=== PATIENT | male | born 1935 | race Caucasian/White ===

== ENCOUNTER 2017-09-18 06:43 | Inpatient (IN) | payer OTHER, MEDICARE ==
[~2017-09-18] VITALS: Ht 177.8 cm; Wt 114.7 kg
[~2017-09-18 06:43] MED LIST: APIX5TAB PO; ATEN50TA PO; ATOR20TA15 PO; CALC1TAB87 PO; ISOS30TA3 PO; LOSA100T PO; METF500T PO; PRIL20TA2 PO; SIMV40TA PO; VITA1000 PO; VITA100T39 PO
[2017-09-18] MEDS ORDERED: SODIUM CHLORID 0.9% 500 ML IV PRN (07:15)
[2017-09-18] MEDS ORDERED: INSULIN HUMAN REGULAR 1,000 UNITS/10 ML VIAL SQ PRN (07:15)
[2017-09-18] MEDS ORDERED: POVIDONE IODINE 5% (ANTISEPSIS KIT) 4 APPLICATIONS EACH NARE PRN (07:15)
[2017-09-18] MEDS ORDERED: LACTATED RINGER'S 1000 ML IV PRN (07:15)
[2017-09-18] MEDS ORDERED: METOPROLOL TARTRATE 25 MG TAB PO PRN (07:15)
[2017-09-18] MEDS ORDERED: CHLORHEXIDINE GLUCONATE 2 % 1 PACK (2 CLOTHS) TOPICAL PRN (07:15)
[2017-09-18] MEDS ORDERED: ceFAZolin 2 GM PREMIX 50 ML IV SCH (07:30)
[2017-09-18] MEDS ORDERED: CHLORHEXIDINE GLUCONATE 4% SOLN 120 ML BTL TOPICAL SCH (07:30)
[2017-09-18] MEDS ORDERED: VANCOMYCIN 1 GM/200 ML PREMIX IV SCH (07:30)
[2017-09-18 07:53] LABS: BASOPHIL # 0.1 TH/MM3 (0-0.2); BASOPHIL % 0.7 % (0.0-2.0); EOSINOPHIL # 0.1 TH/MM3 (0-0.4); EOSINOPHIL % 1.4 % (0.0-4.0); HEMATOCRIT 42.8 % (39.0-51.0); HEMOGLOBIN 14.8 GM/DL (13.0-17.0); LYMPH % 24.1 % (9.0-44.0); LYMPHOCYTE # 1.8 TH/MM3 (1.0-4.8); MEAN CELL VOLUME 94.4 FL (80.0-100.0); MEAN CORPUSCULAR HEMOGLOBIN 32.7 PG (27.0-34.0); MEAN CORPUSCULAR HGB CONC 34.6 % (32.0-36.0); MEAN PLATELET VOLUME 7.2 FL (7.0-11.0); MONO % 7.3 % (0.0-8.0); MONOCYTE # 0.5 TH/MM3 (0-0.9); NEUT % 66.5 % (16.0-70.0); PLATELET COUNT 198 TH/MM3 (150-450); RED BLOOD COUNT 4.54 MIL/MM3 (4.50-5.90); RED CELL DISTRIBUTION WIDTH 13.6 % (11.6-17.2); WHITE BLOOD COUNT 7.5 TH/MM3 (4.0-11.0)
[2017-09-18] MEDS ORDERED: GENTAMICIN SULFATE 80 MG/2 ML VIAL ONE (08:46)
[2017-09-18] MEDS ORDERED: HYDROmorphone HCL PF 2 MG/ML VIAL ONE (09:03)
[2017-09-18] MEDS ORDERED: SUGAMMADEX SODIUM 200 MG/2 ML VIAL IV PUSH ONE (09:03)
[2017-09-18] MEDS ORDERED: ACETAMINOPHEN 1000 MG/100 ML 100 ML IV ONE (09:03)
--- NOTE | 2017-09-18 11:08 | HHI.PR ---
Immediate Post Op Note Procedure Date: Sep 18, 2017 Pre Op Diagnosis: L Hip OA Post Op Diagnosis: Same Surgeon: Mor Estrada MD Social Security Benefits Interviewer(s): Coreen Sánchez PA-C Procedure: L THR Complications: None Specimen(s) removed: None Estimated blood loss: 600cc Anesthesia: General Drains: Hemovac Patient to: PACU Patient Condition: Good Implant/Devices: SEE IMPLANT LOG (if applicable) Date/Time of Procedure: SEE SURGICAL CARE RECORD Mor Estrada MD Sep 18, 2017 11:08
[2017-09-18] MEDS ORDERED: Post-op Orders (for Pharmacy) XX ONE (11:10)
[2017-09-18] MEDS ORDERED: ALUMINUM/MAGNESIUM/SIMETH 30 ML CUP PO PRN (11:15)
[2017-09-18] MEDS ORDERED: MORPHINE SULFATE 8 MG/ML INJ IV PUSH PRN (11:15)
[2017-09-18] MEDS ORDERED: ZOLPIDEM TARTRATE 5 MG TAB PO PRN (11:15)
[2017-09-18] MEDS ORDERED: ONDANSETRON HCL 4 MG/2 ML VIAL IVP PRN (11:15)
--- NOTE | 2017-09-18 11:18 | HHI.FF ---
Face to Face Verification Diagnosis: (1) Osteoarthritis of left hip Physical Therapy Gait training, Transfer training, bed to chair Hip: Total hip, Protocol: Left, Posterior hip precautions Canvas Knee Splint: Other (at night for 4 weeks) Right LE Weight Bearing: WB as tolerated Left LE Weight Bearing: WB as tolerated Nursing RN Days per Week: 3 x Week(s): 4 Nursing: Dressing changes (clean incision with alcohol and apply dry sterile dressing) Additional Instructions Pt/INR q Friday and , call/text results to Coreen ERWIN [phone] Goal INR 1.5-1.8 I have seen patient Sy Mckenna on 09/18/17. My clinical findings support the need for the requested home health care services because: Limited ability to care for self High risk of falls I certify that my clinical findings support that this patient is homebound because: Post-op weakness Unsteady gait/balance Mor Estrada MD Sep 18, 2017 11:18
[2017-09-18] MEDS ORDERED: WALKER WHEELS/F1 MIS (11:19)
[2017-09-18] MEDS ORDERED: BEDSIDE COMMODE1 MI1 (11:19)
[2017-09-18] MEDS ORDERED: HYDR-3288 PO (11:20)
--- NOTE | 2017-09-18 11:45 | MP ---
cc: Mor Estrada MD, Brian ARNP DATE OF OPERATION: 09/18/2017 PREOPERATIVE DIAGNOSES: Left hip severe osteoarthritis. POSTOPERATIVE DIAGNOSIS: Left hip severe osteoarthritis. PROCEDURE: Left total hip arthroplasty. SURGEON: Tammie Estrada MD. MEDICAL DATA ANALYST: Coreen Sánchez PA-C. ESTIMATED BLOOD LOSS: 600 mL. ANESTHESIA: General. DRAINS: One. COMPLICATIONS: None. PLAN OF ACTIVITY: As per orders. PROCEDURE: My general surgery physician assistant, Coreen Sánchez PA-C, was present for the entire surgical case. She was medically necessary for the entire case because of the complexity of the case and to facilitate the performance of the procedure. A ALUMINUM SIDING APPLICATOR was at the back table and not a skill set for this case to manipulate the instrument, e.g. the multiple different types of soft tissue retractors, trial implants and permanent implants. PROCEDURE DETAILS: The patient was brought into the operating room and had a satisfactory general anesthesia by the department of anesthesia. The patient was placed in the lateral decubitus position. All pressure points were well padded. Because the patient is very large and his age, great care was made to protect all pressure points. The left hip and lower extremity was prepped and draped in the usual sterile manner. Posterolateral exposure of the hip was made. Dissection carried through the skin and subcutaneous tissue. All bleeders were individually coagulated. The fascia aure and gluteus kenny was incised in line with the skin incision. Identification and great care was made to protect the sciatic nerve throughout the entire operative procedure. The Charnley retractor was placed in the wound in order to allow better exposure. The short external rotators were removed as group. A capsulotomy was performed. The hip was dislocated posteriorly. The patient was found to have severe osteoarthritis involving the hip joint itself. Osteotomy was made at the femoral neck at the appropriate level. Exposure of the acetabulum made. The acetabular, labrum and capsule were surgically excised. Hemispherical reamers were then used to sequentially prepare for the acetabulum. It was sequentially reamed to 55 mm in outer diameter down to the subchondral plate. A 55 mm bicentric cup was placed. It was found to be an excellent fit and fill. This was removed and preparation of the proximal femur was made. Using the [employer] (PIROX)loc system, it was sequentially broached to #14 broach. Trial reduction made with a 0 neck, 28 mm ball. The hip was reduced. The patient was found to have satisfactory limb length, satisfactory stability and satisfactory range of motion. All trial components were removed and preparation for insertion of the prostheses were made. The wound was irrigated with copious amounts of sterile saline antibiotic solution. A 14 standard offset stem was placed in approximately 15 degrees of anteversion. A 0 neck, 28 mm head was assembled onto the trunnion. The hip was reduced. Again, the patient was found to have satisfactory limb lengths, satisfactory fixation of the prosthesis and satisfactory stability of the hip and satisfactory range of motion. The wound was irrigated with copious amounts of sterile saline antibiotic solution. The wound was closed over an 8th inch Hemovac drain. The short external rotators were repaired back to the greater trochanter with drill holes using #2 Tycron suture. The fascia aure and gluteus kenny was incised in line with the skin incision with #2 Tycron sutures. The subcutaneous tissues closed in layers with 0 Vicryl and 2-0 Vicryl. The skin was approximated with running subcuticular 2-0 nylon suture. Xeroform gauze and sterile dressings were applied. The patient tolerated the procedure well, and arrived in the recovery room in stable and satisfactory condition. MD LUCIANO Watson/DL , 11:13 AM , 11:44 AM
--- NOTE | 2017-09-18 11:59 | RADRPT ---
EXAM DATE/TIME: 09/18/2017 11:25 [facility] COMPARISON: No previous studies available for comparison. INDICATIONS : Left post-op hip replacement. MEDICAL HISTORY : None. SURGICAL HISTORY : None. ENCOUNTER: Initial ACUITY: 1 day PAIN SCORE: 0/10 LOCATION: Left anterior hip. FINDINGS: A lateral view of the left hip with AP pelvis was obtained. The patient had a left bipolar hemiarthro plasty. CONCLUSION: Status post left bipolar hemiarthroplasty with good position. No complications. Steven Dominguez MD on September 18, 2017 at 11:55 Board Certified Radiologist. This report was verified electronically.
[2017-09-18] MEDS ORDERED: PROPOFOL 200 MG/20 ML AMP IV ONE (12:00)
[2017-09-18] MEDS ORDERED: DO NOT ADM ANY ANTICOAGULANT DRUGS PRN (12:00)
[2017-09-18] MEDS ORDERED: GLYCOPYRROLATE 1 MG/5 ML SYRINGE IV PUSH ONE (12:00)
[2017-09-18] MEDS ORDERED: LACTATED RINGER'S 1000 ML INJ 1,000 ML IV ONE (12:00)
[2017-09-18] MEDS ORDERED: ONDANSETRON HCL 4 MG/2 ML VIAL IV ONE (12:00)
[2017-09-18] MEDS ORDERED: NEOSTIGMINE 5 MG/5 ML SYRINGE IV PUSH ONE (12:00)
[2017-09-18] MEDS ORDERED: hydrALAZINE HCL 20 MG/ML VIAL IV ONE (12:00)
[2017-09-18] MEDS ORDERED: ePHEDrine/NS 25 MG/5 ML SYRINGE IV ONE (12:00)
[2017-09-18] MEDS ORDERED: ROCURONIUM INJ 50 MG/5 ML SYRINGE IV PUSH ONE (12:00)
[2017-09-18] MEDS ORDERED: DEXAMETHASONE SOD PHOS 4 MG/ML VIAL IV ONE (12:00)
[2017-09-18] MEDS ORDERED: LIDOCAINE HCL 1% PF 5 ML SYRINGE OTHER ONE (12:00)
[2017-09-18 16:00] VITALS: BP 125/68; PULSE 92; RESP 18; TEMP 97.6; O2SAT 93
--- NOTE | 2017-09-18 16:32 | PD.CONS ---
[facility] Reason for Consult Medical management history of hypertension, CAD, diabetes Diagnoses: History of Present Illness Patient is a very pleasant 82-year-old male with history of CAD status post stent, diabetes type 2, hyperlipidemia who is admitted under orthopedic services and underwent left total hip arthroplasty for severe osteoarthritis. Patient has been having difficulty with his left hip for the past year increasing pain over 1 year and finally decided to have surgery. Denies any orthopnea or leg swelling. Follows up regularly with her PCP P. Per patient last hemoglobin A1c 2 months ago was less than 6. Patient states good hypoglycemic awareness. [facility]. Patient currently is awake alert already voided. Comfortable . Denies any postop pain at present Review of Systems Constitutional: DENIES: Fever, Weight loss, Chills, Change in appetite Eyes: DENIES: Blurred vision, Double Vision Ears, nose, mouth, throat: DENIES: Tinnitus, Ear Pain, Epistaxis, Odynophagia Respiratory: DENIES: Cough, Hemoptysis, Sputum production, Shortness of breath Cardiovascular: DENIES: Chest pain, Palpitations, Dyspnea on Exertion, Lower Extremity Edema, Orthopnea Gastrointestinal: DENIES: Black stools, Bloody stools, Difficulty Swallowing, Anorexia Genitourinary: DENIES: Urgency, Hematuria, Penile Discharge Musculoskeletal: COMPLAINS OF: Joint pain (Left hip pain), DENIES: Stiffness Integumentary: DENIES: Pruritus Hematologic/lymphatic: DENIES: Bruising Immunologic/allergic: DENIES: Urticaria Neurologic: DENIES: Headache, Speech Problems, Tremor Psychiatric: DENIES: Suicidal Ideation, Homicidal Ideation Past Family Social History Allergies: Coded Allergies: No Known Allergies (Unverified , 09/16/17) Past Medical History CAD status post stent followed by Dr. Remy Hyperlipidemia Hypertension Diabetes type 2 Past Surgical History Denies any major surgeries in the past Reported Medications As outpatient Eliquis Atorvastatin Imdur Losartan Atenolol Metformin Vitamin B6 Prilosec as needed Active Ordered Medications See EMR Family History Noncontributory Social History Denies smoking Occasional wine at night denies substance abuse Physical Exam Vital Signs Vital Signs Date Time Temp Pulse Resp B/P (MAP) Pulse Ox O2 Delivery O2 Flow Rate FiO2 09/18/17 16:00 97.6 92 18 125/68 (87) 93 09/18/17 14:40 92 14 134/64 (87) 97 Room Air 09/18/17 14:00 97 14 138/65 (89) 95 Room Air 09/18/17 13:00 82 14 147/76 (99) 98 Nasal Cannula 2 09/18/17 12:30 79 14 143/72 (95) 98 Nasal Cannula 2 09/18/17 12:15 77 14 149/76 (100) 96 Nasal Cannula 2 09/18/17 12:00 76 14 149/71 (97) 97 Nasal Cannula 2 09/18/17 11:45 68 14 151/72 (98) 95 Nasal Cannula 2 09/18/17 11:30 75 14 141/73 (95) 95 Nasal Cannula 2 09/18/17 11:15 98.1 76 14 144/57 (86) 94 Nasal Cannula 2 09/18/17 07:52 97.6 62 22 178/89 (118) 98 Physical Exam GENERAL: Awake and alert in no apparent distress. SKIN, Cool and dry. HEAD: Atraumatic. Normocephalic. EYES: Pupils equal round and reactive. Extraocular motions intact. No scleral icterus. ENT: Nose without bleeding, Throat without erythema Airway patent. NECK: Trachea midline. No JVD or lymphadenopathy. Supple, nontender, no meningeal signs. CARDIOVASCULAR: Regular rate and rhythm without murmurs, gallops, or rubs. RESPIRATORY: Clear to auscultation. Breath sounds equal bilaterally. No wheezes , rales, or rhonchi. GASTROINTESTINAL: Abdomen soft, non-tender, nondistended. No hepato-splenomegaly , or palpable masses. No guarding. MUSCULOSKELETAL: Extremities without clubbing, cyanosis, or edema. No joint tenderness, effusion, or edema noted. No calf tenderness. Negative Homans sign bilaterally. Left hip postop dressing in place NEUROLOGICAL: Awake and alert. Cranial nerves II through XII intact. Motor and sensory grossly within normal limits. Five out of 5 muscle strength in all muscle groups. Normal speech. Laboratory Laboratory Tests Test 09/18/17 07:45 White Blood Count 7.5 Red Blood Count 4.54 Hemoglobin 14.8 Hematocrit 42.8 Mean Corpuscular Volume 94.4 Mean Corpuscular Hemoglobin 32.7 Mean Corpuscular Hemoglobin Concent 34.6 Red Cell Distribution Width 13.6 Platelet Count 198 Mean Platelet Volume 7.2 Neutrophils (%) (Auto) 66.5 Lymphocytes (%) (Auto) 24.1 Monocytes (%) (Auto) 7.3 Eosinophils (%) (Auto) 1.4 Basophils (%) (Auto) 0.7 Neutrophils # (Auto) 5.0 Lymphocytes # (Auto) 1.8 Monocytes # (Auto) 0.5 Eosinophils # (Auto) 0.1 Basophils # (Auto) 0.1 CBC Comment DIFF FINAL Differential Comment Result Diagram: 09/18/17 0745 Imaging Last Impressions Hip and Pelvis X-Ray 09/18/17 0000 Signed Impressions: Service Date/Time: August 11:25 - CONCLUSION: Status post left bipolar hemiarthroplasty with good position. No complications. Steven Dominguez MD Assessment and Plan Assessment and Plan 82-year-old male admitted Status post left total hip arthroplasty for severe osteoarthritis As needed pain meds per primary service. BP daily History of CAD status post stent, hyperlipidemia, hypertension Continue on medications statins atenolol losartan. Eliquis was held by primary service patient placed on Coumadin Review meds with him on 2 different types of statins discussed with patient that we will discontinue simvastatin patient. Patient is on Pravachol 80 mg daily Diabetes type 2 continue on metformin Heart healthy ADA diet DVT prophylaxis. Coumadin was started for DVT prophylaxis. Will discuss with orthopedic service in a.m. if we can instead resume his Eliquis instead of putting him on Coumadin. Thank you for this consult will follow patient in-house with you. Case management consulted for discharge planning patient would like to go home with home health care therapy Discussed Condition With Patient Carlos Foy MD Sep 18, 2017 16:32
[2017-09-18] MEDS: ACETAMINOPHEN/HYDROcodone 325 MG/7.5 MG TAB PO PRN (18:05)
[2017-09-18 19:50] VITALS: O2SAT 97
[2017-09-18 20:00] VITALS: BP 138/70; PULSE 90; RESP 18; TEMP 98.2; O2SAT 93
[2017-09-18] MEDS ORDERED: ATORVASTATIN 20 MG TAB PO SCH (21:00)
[2017-09-18] MEDS: PRAVASTATIN SOD 80 MG TAB PO SCH (21:08)
[2017-09-18] MEDS: LACTATED RINGER'S 1000 ML INJ 1,000 ML IV SCH (21:12)
[2017-09-18 23:37] VITALS: BP 118/57; PULSE 83; RESP 19; TEMP 97.4; O2SAT 96
[2017-09-19] VITALS (9 sets, daily range): BP systolic 86–187; BP diastolic 48–98; PULSE 68–94; RESP 16–18; TEMP 97.4–98.9; O2SAT 86–98
[2017-09-19 05:26] LABS: HEMATOCRIT 37.3 % (39.0-51.0)
[2017-09-19 05:28] LABS: INTERNATIONAL NORMALIZED RATIO 1.1 RATIO; PROTHROMBIN TIME - PATIENT 11.4 SEC (9.8-11.6)
--- NOTE | 2017-09-19 07:04 | PD.ORT.PN ---
Subjective Subjective Remarks pt doing well, complaints of post op hip pain with ambulation Objective Vitals Vital Signs Date Time Temp Pulse Resp B/P (MAP) Pulse Ox O2 Delivery O2 Flow Rate FiO2 09/19/17 03:52 98.3 82 18 141/67 (91) 95 09/19/17 00:38 95 21 09/18/17 23:37 97.4 83 19 118/57 (77) 96 09/18/17 20:00 98.2 90 18 138/70 (92) 93 09/18/17 19:50 97 21 09/18/17 16:00 97.6 92 18 125/68 (87) 93 09/18/17 14:40 92 14 134/64 (87) 97 Room Air 09/18/17 14:00 97 14 138/65 (89) 95 Room Air 09/18/17 13:00 82 14 147/76 (99) 98 Nasal Cannula 2 09/18/17 12:30 79 14 143/72 (95) 98 Nasal Cannula 2 09/18/17 12:15 77 14 149/76 (100) 96 Nasal Cannula 2 09/18/17 12:00 76 14 149/71 (97) 97 Nasal Cannula 2 09/18/17 11:45 68 14 151/72 (98) 95 Nasal Cannula 2 09/18/17 11:30 75 14 141/73 (95) 95 Nasal Cannula 2 09/18/17 11:15 98.1 76 14 144/57 (86) 94 Nasal Cannula 2 09/18/17 07:52 97.6 62 22 178/89 (118) 98 I/O 09/18/17 09/18/17 09/18/17 09/19/17 09/19/17 09/19/17 07:00 15:00 23:00 07:00 15:00 23:00 Intake Total 500 ml 360 ml Output Total 600 ml 150 ml 500 ml Balance -600 ml 350 ml -140 ml Intake Oral 500 ml 360 ml Output Urine Total 150 ml 500 ml Drainage Total 0 ml Estimated Blood Loss 600 ml # Voids 2 # Bowel Movements 0 0 Result Diagram: 09/19/17 0410 Other Results Laboratory Tests Test 09/19/17 04:10 Prothromb Time International Ratio 1.1 RATIO Prothrombin Time 11.4 SEC (9.8-11.6) Objective Remarks also seen and examined by Dr. Mor Estrada Left hip dressing dry and intact no calf tenderness distal sensation intact Assessment & Plan Assessment and Plan POD # 1 s/p L ALLIE PT-WBAT pt on Eliquis pre-operatively, going to treat with Coumadin for 2 weeks and then resume Eliquis discharge home today with [facility] orthopedically stable Coreen Sánchez Sep 19, 2017 07:04
[2017-09-19] MEDS ORDERED: COUM5TAB PO (07:05)
[2017-09-19] MEDS: LOSARTAN 50 MG TAB PO SCH (09:00)
[2017-09-19] MEDS: PANTOPRAZOLE SOD 20 MG DELAYED RELEASE TAB PO SCH (09:41)
[2017-09-19] MEDS: ISOSORBIDE MONONITRATE 30 MG CR TAB (IMDUR) PO SCH (09:41)
[2017-09-19] MEDS: ATENOLOL 50 MG TAB PO SCH (09:41)
[2017-09-19] MEDS: metFORMIN HCL 500 MG TAB PO SCH (09:41)
[2017-09-19] MEDS: ACETAMINOPHEN/HYDROcodone 325 MG/7.5 MG TAB PO PRN ×2 (09:42→14:29)
[2017-09-19] MEDS: LACTATED RINGER'S 1000 ML INJ 1,000 ML IV SCH (12:11)
--- NOTE | 2017-09-19 12:11 | HHI.PR ---
Subjective Remarks up on chair with at bedsdie would like to do more therapy no pain complains voiding Objective Vitals Vital Signs Date Time Temp Pulse Resp B/P (MAP) Pulse Ox O2 Delivery O2 Flow Rate FiO2 09/19/17 08:30 98 21 09/19/17 08:00 98.4 94 16 187/98 (127) 94 09/19/17 03:52 98.3 82 18 141/67 (91) 95 09/19/17 00:38 95 21 09/18/17 23:37 97.4 83 19 118/57 (77) 96 09/18/17 20:00 98.2 90 18 138/70 (92) 93 09/18/17 19:50 97 21 09/18/17 16:00 97.6 92 18 125/68 (87) 93 09/18/17 14:40 92 14 134/64 (87) 97 Room Air 09/18/17 14:00 97 14 138/65 (89) 95 Room Air 09/18/17 13:00 82 14 147/76 (99) 98 Nasal Cannula 2 09/18/17 12:30 79 14 143/72 (95) 98 Nasal Cannula 2 09/18/17 12:15 77 14 149/76 (100) 96 Nasal Cannula 2 I/O 09/18/17 09/18/17 09/18/17 09/19/17 09/19/17 09/19/17 07:00 15:00 23:00 07:00 15:00 23:00 Intake Total 500 ml 360 ml Output Total 600 ml 150 ml 500 ml Balance -600 ml 350 ml -140 ml Intake Oral 500 ml 360 ml Output Urine Total 150 ml 500 ml Drainage Total 0 ml Estimated Blood Loss 600 ml # Voids 2 # Bowel Movements 0 0 Result Diagram: 09/19/17 0410 Imaging Last Impressions Hip and Pelvis X-Ray 09/18/17 0000 Signed Impressions: Service Date/Time: August 11:25 - CONCLUSION: Status post left bipolar hemiarthroplasty with good position. No complications. Steven Dominguez MD Objective Remarks awake and alert, no acute distress anciteric lungs- cler regular rhythm abdomen soft, good bowel sounds left hip post op dressing in place extremities no edema, no calf swelling Procedures 09/18- left total hip arthroplasty A/P Assessment and Plan 82-year-old male admitted Status post left total hip arthroplasty for severe osteoarthritis 09/18 - [facility] ff prn pain meds History of CAD status post stent, hyperlipidemia, hypertension - Continue on medications statins atenolol losartan. Eliquis was held by primary service patient placed on Coumadin. - Pravachol 80 mg daily Diabetes type 2 continue on metformin Heart healthy ADA diet DVT prophylaxis. Coumadin was started for DVT prophylaxis. Case management consulted for discharge planning patient would like to go home with home health care therapy Discussed Condition With Carlos Foy MD Sep 19, 2017 12:11
[2017-09-19] MEDS ORDERED: WARFARIN SOD 5 MG TAB PO SCH (16:00)
[2017-09-19] MEDS: DOCUSATE SODIUM 100 MG CAP PO SCH (21:19)
[2017-09-19] MEDS: PRAVASTATIN SOD 80 MG TAB PO SCH (21:19)
[2017-09-20] MEDS: LACTATED RINGER'S 1000 ML INJ 1,000 ML IV SCH (00:41)
[2017-09-20] MEDS: ACETAMINOPHEN/HYDROcodone 325 MG/7.5 MG TAB PO PRN ×3 (05:55→12:55)
[2017-09-20 06:18] LABS: INTERNATIONAL NORMALIZED RATIO 1.1 RATIO; PROTHROMBIN TIME - PATIENT 11.3 SEC (9.8-11.6)
[2017-09-20 06:30] VITALS: BP_SYST 134; BP_SYST 142; BP_DIAS 62; BP_DIAS 65; PULSE 82; RESP 18; TEMP 98.2; O2SAT 97
--- NOTE | 2017-09-20 07:17 | PD.ORT.PN ---
Subjective Subjective Remarks Is progressing very slow with physical therapy. He has only been able to take a few steps. Objective Vitals Vital Signs Date Time Temp Pulse Resp B/P (MAP) Pulse Ox O2 Delivery O2 Flow Rate FiO2 09/20/17 06:30 98.2 82 18 142/65 (90) 97 09/19/17 23:06 98.9 76 18 101/52 (68) 98 09/19/17 20:39 21 09/19/17 19:24 98.9 68 18 96/52 (67) 97 09/19/17 16:00 97.4 69 18 118/56 (76) 97 09/19/17 14:09 103/51 (68) 09/19/17 12:00 98.0 79 18 86/48 (61) 86 09/19/17 08:30 98 21 09/19/17 08:00 98.4 94 16 187/98 (127) 94 I/O 09/19/17 09/19/17 09/19/17 09/20/17 09/20/17 09/20/17 07:00 15:00 23:00 07:00 15:00 23:00 Intake Total 360 ml 700 ml 360 ml Output Total 500 ml 600 ml 475 ml Balance -140 ml 100 ml -115 ml Intake Oral 360 ml 700 ml 360 ml Output Urine Total 500 ml 600 ml 475 ml Drainage Total 0 ml # Voids 2 # Bowel Movements 0 0 Result Diagram: 09/19/17 0410 Other Results Laboratory Tests Test 09/20/17 04:01 Prothromb Time International Ratio 1.1 RATIO Prothrombin Time 11.3 SEC (9.8-11.6) Objective Remarks Left hip dressing dry and intact no calf tenderness distal sensation intact Active dorsiflexion plantar flexion of foot Assessment & Plan Assessment and Plan POD # 2 s/p L ALLIE PT-WBAT pt on Eliquis pre-operatively, going to treat with Coumadin for 2 weeks and then resume Eliquis Physical therapy twice daily today. Need to evaluate if home discharge is realistic or if rehab is needed. We will plan for discharge to home if he progresses well orthopedically stable Mahendra Ovalle Jr. Sep 20, 2017 07:17
--- NOTE | 2017-09-20 08:15 | HHI.PR ---
Subjective Remarks motivated with therapy pain controlled good po + flatus Objective Vitals Vital Signs Date Time Temp Pulse Resp B/P (MAP) Pulse Ox O2 Delivery O2 Flow Rate FiO2 09/20/17 06:30 98.2 82 18 142/65 (90) 97 09/19/17 23:06 98.9 76 18 101/52 (68) 98 09/19/17 20:39 21 09/19/17 19:24 98.9 68 18 96/52 (67) 97 09/19/17 16:00 97.4 69 18 118/56 (76) 97 09/19/17 14:09 103/51 (68) 09/19/17 12:00 98.0 79 18 86/48 (61) 86 09/19/17 08:30 98 21 I/O 09/19/17 09/19/17 09/19/17 09/20/17 09/20/17 09/20/17 07:00 15:00 23:00 07:00 15:00 23:00 Intake Total 360 ml 700 ml 360 ml Output Total 500 ml 600 ml 475 ml Balance -140 ml 100 ml -115 ml Intake Oral 360 ml 700 ml 360 ml Output Urine Total 500 ml 600 ml 475 ml Drainage Total 0 ml # Voids 2 # Bowel Movements 0 0 Result Diagram: 09/19/17 0410 Imaging Last Impressions Hip and Pelvis X-Ray 09/18/17 0000 Signed Impressions: Service Date/Time: August 11:25 - CONCLUSION: Status post left bipolar hemiarthroplasty with good position. No complications. Steven Dominguez MD Objective Remarks awake and alert, no acute distress anciteric lungs- cler regular rhythm abdomen soft, good bowel sounds left hip post op dressing in place extremities no edema, no calf swelling Procedures 09/18- left total hip arthroplasty A/P Assessment and Plan 82-year-old male admitted Status post left total hip arthroplasty for severe osteoarthritis 09/18 - [facility] ff prn pain meds History of CAD status post stent, hyperlipidemia, hypertension - Continue on medications statins atenolol losartan. Eliquis was held by primary service patient placed on Coumadin. - Pravachol 80 mg daily Diabetes type 2 continue on metformin Heart healthy ADA diet DVT prophylaxis. Coumadin was started for DVT prophylaxis. x 2 weeks then resume eliquis - on DC Case management consulted for discharge planning patient would like to go home with home health care therapy Discussed Condition With patient-- insists that he wants to go home with home PT instead of rehab Ortho ff- will determine next few days - his progress here - if will need skilled Carlos Foy MD Sep 20, 2017 08:15
[2017-09-20] MEDS: DOCUSATE SODIUM 100 MG CAP PO SCH (09:24)
[2017-09-20] MEDS: LOSARTAN 50 MG TAB PO SCH (09:24)
[2017-09-20] MEDS: ISOSORBIDE MONONITRATE 30 MG CR TAB (IMDUR) PO SCH (09:24)
[2017-09-20] MEDS: metFORMIN HCL 500 MG TAB PO SCH (09:24)
[2017-09-20] MEDS: ATENOLOL 50 MG TAB PO SCH (09:24)
[2017-09-20] MEDS: PANTOPRAZOLE SOD 20 MG DELAYED RELEASE TAB PO SCH (09:25)
[2017-09-20 12:00] VITALS: BP 100/56; PULSE 71; RESP 18; TEMP 97.3; O2SAT 92
== END 2017-09-20 14:11 | DRG 470 ==
LOC: HSDI 06:43 → N06A 14:57
PROVIDERS: ADMIT Orthopaedic Surgery Orthopaedic Surgery of the Spine; ATTEND Orthopaedic Surgery Orthopaedic Surgery of the Spine
PROC: 0SRB0JA Replacement of Left Hip Joint with Synthetic Substitute, Uncemented, Open Approach (ICD-10-PCS; principal; 2017-09-18 09:02)
DX: M16.12 Unilateral primary osteoarthritis, left hip (principal); E11.9 Type 2 diabetes mellitus without complications; I10 Essential (primary) hypertension; I25.10 Atherosclerotic heart disease of native coronary artery without angina pectoris; E78.5 Hyperlipidemia, unspecified; Z95.5 Presence of coronary angioplasty implant and graft; Z79.84 Long term (current) use of oral hypoglycemic drugs
CPT/HCPCS: 73501; 82948; 85014; 85018; 85025; 85610; 86850; 86900; 86901; 86920; 94150; C1776; J0131; J0360; J0690; J1100; J1170; J1580; J2405; J2710; J3010; J7120; L1830